=== PATIENT | female | born 1950 ===

== ENCOUNTER 2021-06-24 08:59 | Outpatient (CLI) | payer OTHER | END 2021-06-24 09:07 | disposition home or self-care (01) | LOC: SONOGRAMA 08:59 | PROVIDERS: ATTEND Urology | DX: R31.1 Benign essential microscopic hematuria (principal) ==

== ENCOUNTER 2022-01-31 10:13 | Outpatient (CLI) | payer OTHER | END 2022-01-31 11:13 | disposition home or self-care (01) | LOC: ASH CLINIC 10:13 | PROVIDERS: ATTEND Urology | DX: U07.1 COVID-19 (principal) ==

== ENCOUNTER 2022-03-27 08:03 | Outpatient (CLI) | payer OTHER | END 2022-03-27 08:05 | disposition home or self-care (01) | LOC: MAMO-SONO 08:03 | PROVIDERS: ATTEND Obstetrics & Gynecology Maternal & Fetal Medicine | DX: N63.0 Unspecified lump in unspecified breast (principal); Z12.31 Encounter for screening mammogram for malignant neoplasm of breast; N64.4 Mastodynia; N60.11 Diffuse cystic mastopathy of right breast ==

== ENCOUNTER 2023-08-03 08:07 | Outpatient (CLI) | payer OTHER | END 2023-08-03 08:12 | disposition home or self-care (01) | LOC: RAD 08:07 | PROVIDERS: ATTEND Urology | DX: M12.571 Traumatic arthropathy, right ankle and foot (principal) ==

== ENCOUNTER 2023-09-11 07:38 | Outpatient (CLI) | payer OTHER | END 2023-09-11 07:43 | disposition home or self-care (01) | LOC: SONOGRAMA 07:38 | DX: M77.9 Enthesopathy, unspecified (principal); M72.2 Plantar fascial fibromatosis ==

== ENCOUNTER 2024-01-21 10:24 | Outpatient (CLI) | payer OTHER | END 2024-01-21 10:32 | disposition home or self-care (01) | LOC: RAD 10:24 | DX: S92.901A Unspecified fracture of right foot, initial encounter for closed fracture (principal) ==

== ENCOUNTER 2024-12-29 07:17 | Outpatient (CLI) | payer OTHER | END 2024-12-30 14:22 | disposition home or self-care (01) | LOC: SONOGRAMA 07:17 | PROVIDERS: ATTEND Urology | DX: R31.1 Benign essential microscopic hematuria (principal); E78.5 Hyperlipidemia, unspecified; E03.9 Hypothyroidism, unspecified; R73.9 Hyperglycemia, unspecified; E55.9 Vitamin D deficiency, unspecified ==